=== PATIENT | female | born 1985 | race Caucasian/White ===

== ENCOUNTER 2017-08-05 08:53 | Day surgery (SDC) | payer OTHER ==
[2017-08-05 09:30] VITALS: BMI 31.1
--- NOTE | 2017-08-05 10:09 | PDOC.EVN ---
Event Note - Event Note Event Note: TRIAGE NOTE: Please see handwritten progress note In brief: Patient is a 31yo at 32 weeks and 2 days with urinary frequency and urgency, possible contractions. No fever. No recent trauma or sex. No Hx PIH. On low dose ASA for PIH Hx. I have ordered: Monitors Urine cath for UA FFN Observe for now FULL H&P in chart
--- NOTE | 2017-08-05 10:23 | PDOC.EVN ---
Event Note - Event Note Event Note: cervix exam by me FT/lg/-3/I
[2017-08-05 10:55] LABS: Bilirubin Negative (Negative); Blood, Urine Negative (Negative); Clarity CLEAR (Clear); Glucose, Urine (Dipstick) Negative (Negative); Leukocyte Negative (Negative); Nitrite Negative (Negative); Protein, Urine (Dipstick) Negative (Neg-Trace); Specific Gravity, Urine 1.008 (1.002-1.036); Urobilinogen 0.2 mg/dL (0.2-1.0); pH, Urine 6.5 (5.0-9.0)
[2017-08-05 10:57] LABS: FFN Internal QC Analyzer PASS (PASS); FFN Internal QC Cassette PASS (PASS); Fetal Fibronectin Negative (Negative)
--- NOTE | 2017-08-05 11:19 | PDOC.EVN ---
Event Note - Event Note Event Note: Lab check: FFN Neg UA negative I discussed with her negative UA. SXS are pretty compatible with UTI, despite UA. Therefore, I will RX emperically with macrobid for 5 days. Info given to the patient.
== END 2017-08-05 11:36 | disposition home or self-care (01) ==
LOC: L&D/OP 08:53
PROVIDERS: ATTEND Obstetrics & Gynecology
DX: O23.43 Unspecified infection of urinary tract in pregnancy, third trimester (principal); Z3A.32 32 weeks gestation of pregnancy
CPT/HCPCS: 51701; 81003; 82731; 99284; A4353

== ENCOUNTER 2017-08-29 13:00 | Day surgery (SDC) | payer OTHER ==
[2017-08-29 13:24] VITALS: BMI 31.4
[2017-08-29 13:25] VITALS: BP 132/85; TEMP 97.7
[2017-08-29] MEDS ORDERED: Acetaminophen 500 MG TAB PO SCH (13:45)
--- NOTE | 2017-08-29 13:45 | PDOC.LDHP ---
Labor and Delivery H&P Chief complaint: other (Hradache and "blurry vision") HPI: Patient of Dr Adams here for HUOSER and concern for PIH. Patient is a 31 yo at 35 weeks 4 days, with PIH with prior pregnanies, concerned she might have PIH. States saw "blurry" this AM (no spots) and has a headache. Good FM, no contractions, no LOF, no trauma, no siezures. No RUQ pain. Review of systems: complete ROS performed and negative as per HPI Current gestational age (weeks): 35 (4 days) Grav: 4 Para: 2 Current complications: none Abnormal US findings: No Past Medical History: Hx Anxiety Current medications: pre-daniel vitamins, other (low dose ASA) Previous surgical history: none Allergies/Adverse Reactions: Allergies Allergy/AdvReac Type Severity Reaction Status Date / Time No Known Allergies Allergy Verified 08/05/17 09:17 Social history: none - Physical Exam Vital signs reviewed and normal: yes (BP 133/85) General: NAD Heart: RRR Lungs: CTAB Abdomen: gravid Extremeties: no edema FHT: category 1 - Assessment 35 weeks with headache. First BP on record was nonhypertensive. - Plan Plan: observation in L&D, other (serial BPs for now. No evidence gross neurological deficits. No clonus. Check CMP and CBC for now. Offer tyenol. No evidence hypertensio at this time. Follow for now.)
[2017-08-29 14:08] LABS: #Lymphocytes 1.2 thou/uL (1.20-3.40); #Monocytes 0.6 thou/uL (0.11-0.59); #Neutrophils 6.5 thou/uL (1.40-6.50); %Basophils 0.3 % (0.0-1.0); %Eosinophils 0.6 % (0.0-10.0); %Lymphocytes 13.9 % (21.0-51.0); %Monocytes 6.6 % (0.0-10.0); %Neutrophils 78.6 % (42.0-75.0); Hemoglobin 12.4 g/dL (12.0-16.0); Mean Corpuscular HGB CONC 35.5 g/dL (32.0-36.0); Mean Corpuscular Hemoglobin 30.1 pg (27.0-31.0); Mean Corpuscular Volume 84.7 fl (81.0-99.0); Mean Platelet Volume 8.6 fL (7.4-10.4); Platelet Count 138 thou/uL (130-400); RBC Distribution Width 11.8 % (11.5-14.5); Red Blood Cell (RBC) Count 4.14 mill/uL (4.20-5.40); White Blood Cell (WBC) Count 8.3 thou/uL (4.8-10.8)
[2017-08-29 14:38] LABS: ALT (SGPT) 107 U/L (8-55); AST (SGOT) 39 U/L (5-34); Albumin 3.6 g/dL (3.5-5.0); Alkaline Phosphatase 129 U/L (40-150); Anion Gap 11 mmol/L (10-20); BUN (Urea Nitrogen) 7 mg/dL (7.0-18.7); Bilirubin, Total 1.7 mg/dL (0.2-1.2); Calc. Creatinine Clearance 201 mL/min (70-130); Calcium 9.2 mg/dL (7.8-10.44); Carbon Dioxide 22 mmol/L (22-29); Chloride 108 mmol/L (98-107); Estimated GFR-MDRD Greater than 90; Globulin 2.6 g/dL (2.4-3.5); Glucose 69 mg/dL (70-105); Potassium 3.8 mmol/L (3.5-5.1); Protein, Total 6.2 g/dL (6.0-8.3); Sodium 137 mmol/L (136-145)
--- NOTE | 2017-08-29 15:25 | PDOC.EVN ---
Event Note - Event Note Event Note: All BPs are normal. Mo evidence hypertension by record. Only isolatred ALT of 107 om labs. AST and creatinine are normal. I have suggested repeat LFTs in 48-72 hours. I do not suspect PIH at this time.
== END 2017-08-29 15:48 | disposition home or self-care (01) ==
LOC: L&D/OP 13:00
PROVIDERS: ATTEND Obstetrics & Gynecology
DX: O99.89 Other specified diseases and conditions complicating pregnancy, childbirth and the puerperium (principal); R51 Headache; H53.8 Other visual disturbances; Z3A.35 35 weeks gestation of pregnancy
CPT/HCPCS: 36415; 59025; 80053; 85025; 99283

== ENCOUNTER 2017-08-31 11:55 | Inpatient (IN) | payer OTHER ==
[2017-08-31] MEDS ORDERED: Zolpidem Tartrate 5 MG TAB PO PRN (12:18)
[2017-08-31] MEDS ORDERED: Acetaminophen 500 MG TAB PO PRN (12:18)
[2017-08-31] MEDS ORDERED: Lidocaine 1% (PF) 30 ML VIAL SC PRN (12:18)
[2017-08-31] MEDS ORDERED: Ondansetron HCl/PF 4 MG/2 ML Vial IVP PRN (12:18)
[2017-08-31] MEDS ORDERED: HYDROcodone/Acetaminophen 5/325 mg Tablet PO PRN ×2 (12:18)
[2017-08-31] MEDS ORDERED: Butorphanol Tartrate 1 MG/ML VIAL SLOW IVP PRN (12:18)
[2017-08-31] MEDS ORDERED: NS / Oxytocin 40 units/1000ml 1,000 ML IV PRN (12:18)
[2017-08-31] MEDS ORDERED: Promethazine HCl 25 MG/ML VIAL IM PRN (12:18)
[2017-08-31] MEDS ORDERED: NS w/ Oxytocin 10 units 500 ML IV SCH (12:30)
[2017-08-31] MEDS ORDERED: Penicillin G Potassium 5 MILL.UNITS in Sodium Chloride 0.9% 100 ML IVPB SCH ×3 (12:30→22:00)
[2017-08-31] MEDS ORDERED: Lactated Ringer's 1,000 ML IV SCH (12:30)
--- NOTE | 2017-08-31 12:39 | PDOC.LDHP ---
Labor and Delivery H&P Chief complaint: other HPI: 31 yo WF here for induction from Dr. Del Valle with h/o elevated BPs and elevated LFTs c/w PIH. Current gestational age (weeks): 35 Due date: 09/29/17 Dating criteria: first trimester ultrasound Grav: 5 Para: 2 OB History Details: PNC with Dr. Adams. H/o PIH x2 Current complications: none Abnormal US findings: Yes Past Medical History: none Current medications: pre-daniel vitamins Previous surgical history: none Allergies/Adverse Reactions: Allergies Allergy/AdvReac Type Severity Reaction Status Date / Time No Known Allergies Allergy Verified 08/05/17 09:17 Social history: none - Physical Exam General: NAD Heart: RRR Lungs: nonlabored breathing Abdomen: gravid Extremeties: trace edema FHT: variability present - Vaginal Exam cm dilated: 1 Effacement: 25% Station: -1 - OB Labs Blood type: B RH: negative Antibody Screen: negative HIV: negative RPR: negative HEPSAg: negative 1 hour GCT: negative GBS: unknown - Assessment 35 week IUP w/ PIH dispo by Dr. Del Valle for delivery - Plan -: Admit. Steroids for LFM. Cytotec for unfavorable cervix then pitocin induction. ABX for unknown GBS.
[2017-08-31] MEDS: Lactated Ringer's 1,000 ML IV SCH ×2 (13:00→20:20)
[2017-08-31] MEDS ORDERED: Betamet Acet/Betamet Na Ph 30 MG/5 ML VIAL ONE (13:27)
[2017-08-31 13:33] LABS: Mean Corpuscular HGB CONC 34.6 g/dL (32.0-36.0); Mean Corpuscular Hemoglobin 29.5 pg (27.0-31.0); Mean Corpuscular Volume 85.4 fl (81.0-99.0); Mean Platelet Volume 9.8 fL (7.4-10.4); Platelet Count 142 thou/uL (130-400); Red Blood Cell (RBC) Count 4.05 mill/uL (4.20-5.40); White Blood Cell (WBC) Count 8.7 thou/uL (4.8-10.8)
--- NOTE | 2017-08-31 13:50 | PDOC.EVN ---
Event Note - Event Note Event Note: Eating lunch. BP now= 138/81. Labs this AM at [facility]: T. bili= 1.6, AST= 46, ALT= 129, Cr= .69. CBC now: h/H= 34, plts= 142K. Plan: Cytotec for cervical ripening then pitocin induction. Celestone now and repeat in 12 hrs. ABX in labor for unknown GBS status.
[2017-08-31 13:58] VITALS: BMI 32.2
[2017-08-31] MEDS: Betamet Acet/Betamet Na Ph 30 MG/5 ML VIAL IM SCH (14:00)
[2017-08-31 14:12] LABS: HBSAg Index 0.24 S/CO (0-0.99); Hep B Surf Ag Non-Reactive S/CO (NonReactive)
[2017-08-31 14:13] LABS: Syphilis Antibody Nonreactive (Nonreactive); Syphilis Antibody Index 0.05 S/CO (<1.00 Non-Reactive)
[2017-08-31 14:32] LABS: Bilirubin Negative (Negative); Blood, Urine Negative (Negative); Clarity CLEAR (Clear); Glucose, Urine (Dipstick) Negative (Negative); Leukocyte Trace (Negative); Nitrite Negative (Negative); Protein, Urine (Dipstick) Trace mg/dL (Neg-Trace); Specific Gravity, Urine 1.021 (1.002-1.036); pH, Urine 6.5 (5.0-9.0)
[2017-08-31 14:36] LABS: Bacteria/HPF None Seen HPF (None Seen); Hyaline Casts/LPF 0-3 HYALINE CAST LPF (0-3 Hyaline); Pathc Cast-AUWi Flag 0.58 (0-2.49); RBC/HPF 0-3 HPF (0-3); Squamous Epithelial 0-3 HPF (0-3); WBC/HPF 0-3 HPF (0-3)
[2017-08-31] MEDS: Misoprostol 100 MCG TAB VAG SCH ×3 (15:15→21:11)
[2017-08-31] MEDS: Penicillin G 2.5 MILL.units 2.5 MILL.UNITS in Premix Bag 1 BAG IVPB SCH ×3 (15:22→21:13)
--- NOTE | 2017-08-31 21:37 | PDOC.LDPN ---
Labor & Delivery Progress Note - Subjective Subjective: comfortable - Objective Vital signs reviewed and normal: yes General: resting Uterine fundus: non tender Dilation: 3 Effacement: 75% Station: -2 FHT: variability present [place] contractions every: q 3-4 mins -: 3rd dose of Cytotec deferred. Observe labor progress for now. Start ABX for GBS. Pitocin augmentation if needed.
[2017-09-01] MEDS: Misoprostol 100 MCG TAB VAG SCH ×2 (00:43→06:11)
[2017-09-01] MEDS ORDERED: Fentanyl 100 MCG/2 ML VIAL ONE (01:10)
[2017-09-01] MEDS ORDERED: Bupivacaine 0.5% 20 ML, fentaNYL Citrate/PF 400 MCG in Sodium Chloride 0.9% 72 ML EPIDURAL SCH (01:15)
[2017-09-01] MEDS ORDERED: DISCONTINUE ALL PREVIOUS NARCOTICS FS SCH (01:15)
[2017-09-01] MEDS ORDERED: Hydrocerin (Eucerin) Cream 120 gm Jar TOP PRN (01:35)
[2017-09-01] MEDS ORDERED: Ondansetron HCl/PF 4 MG/2 ML Vial IVP PRN (01:35)
[2017-09-01] MEDS ORDERED: ePHEDrine/0.9% NaCl/PF SYRINGE 50 mg/10 ml SLOW IVP PRN (01:35)
[2017-09-01] MEDS ORDERED: Lactated Ringer's 500 ML IV PRN (01:35)
[2017-09-01] MEDS ORDERED: diphenhydrAMINE 50 MG/ML VIAL IVP PRN (01:35)
[2017-09-01] MEDS ORDERED: Acetaminophen 325 MG TAB PO PRN (01:35)
[2017-09-01] MEDS ORDERED: Promethazine HCl 25 MG/ML VIAL IM PRN (01:35)
[2017-09-01] MEDS ORDERED: Naloxone HCl 0.4 mg/ml Vial IVP PRN ×2 (01:35)
[2017-09-01] MEDS ORDERED: Communication Order-Pharmacy FS SCH (01:45)
[2017-09-01] MEDS ORDERED: Fentanyl 4mcg/Marcaine 0.1% Cassette 100 ML EPIDURAL SCH (01:45)
[2017-09-01] MEDS: Betamet Acet/Betamet Na Ph 30 MG/5 ML VIAL IM SCH (02:02)
[2017-09-01] MEDS: Penicillin G 2.5 MILL.units 2.5 MILL.UNITS in Premix Bag 1 BAG IVPB SCH ×2 (02:18→06:11)
[2017-09-01] MEDS: Lactated Ringer's 1,000 ML IV SCH ×3 (02:20→21:50)
--- NOTE | 2017-09-01 02:47 | PDOC.EVN ---
Event Note - Event Note Event Note: Comfortable with epidural. BPs reassuring. SVE remains 4-5/70/0 vtx. AROM- clear fluid. Pen G given. 2nd dose of steroids given. Watch progress. Augment if needed.
[2017-09-01] MEDS ORDERED: Ondansetron ODT 4 MG TAB PO PRN (05:42)
--- NOTE | 2017-09-01 05:56 | PDOC.OPDEL ---
OB Operative/Delivery Note Delivery Dr/Surgeon: Roderick Pre-Delivery Diagnosis: medically indicated induction Procedure/Post Delivery Dx: spontaneous vaginal delivery Weeks gestation: 36 Anesthesia: epidural - Additional Findings/Plan Placenta delivered: spontaneous Repaired Obstetrical Laceration: none Estimated blood loss: 250 cc Compilations/Other Findings: Viable male OA over intact perineum Apgars 9/9. BPs were normal in labor. 2 doses steroids and ABX for unknown GBS status given. To recover in L&D.
[2017-09-01] MEDS ORDERED: Bisacodyl 10 MG SUPP PR PRN (07:26)
[2017-09-01] MEDS ORDERED: traMADol HCl 50 MG TAB PO PRN (07:26)
[2017-09-01] MEDS ORDERED: HYDROcodone/Acetaminophen 5/325 mg Tablet PO PRN ×2 (07:26)
[2017-09-01] MEDS ORDERED: diphenhydrAMINE 25 MG CAP PO PRN (07:26)
[2017-09-01] MEDS ORDERED: Preparation H Ointment 28 GM TUBE PR PRN (07:26)
[2017-09-01] MEDS ORDERED: Zolpidem Tartrate 5 MG TAB PO PRN (07:26)
[2017-09-01] MEDS ORDERED: NS / Oxytocin 40 units/1000ml 1,000 ML IV SCH (07:26)
[2017-09-01] MEDS ORDERED: Lanolin Ointment 7 GM TUBE TOP PRN (07:26)
[2017-09-01] MEDS ORDERED: Milk Of Magnesia 30 ML UDCUP PO PRN (07:26)
[2017-09-01] MEDS ORDERED: Adacel (T-DAP) 0.5 ML VIAL IM ONE (07:26)
[2017-09-01] MEDS: Ferrous Sulfate 325 MG TAB PO SCH ×2 (08:36→21:51)
[2017-09-01] MEDS: Prenatal Vitamin 1 TAB PO SCH (09:03)
[2017-09-01] MEDS: Docusate Calcium (SURFAK) 240 MG CAP PO SCH ×2 (09:03→21:40)
[2017-09-01] MEDS: Ibuprofen 800 MG TAB PO PRN (21:41)
[2017-09-02 05:11] LABS: Hemoglobin 11.3 g/dL (12.0-16.0); Mean Corpuscular HGB CONC 34.5 g/dL (32.0-36.0); Mean Corpuscular Hemoglobin 29.9 pg (27.0-31.0); Mean Corpuscular Volume 86.7 fl (81.0-99.0); Mean Platelet Volume 9.3 fL (7.4-10.4); Platelet Count 155 thou/uL (130-400); RBC Distribution Width 12.3 % (11.5-14.5); Red Blood Cell (RBC) Count 3.77 mill/uL (4.20-5.40)
[2017-09-02] MEDS: Ibuprofen 800 MG TAB PO PRN (06:46)
[2017-09-02 07:10] LABS: ALT (SGPT) 200 U/L (8-55); AST (SGOT) 66 U/L (5-34); Albumin 3.3 g/dL (3.5-5.0); Alkaline Phosphatase 118 U/L (40-150); Anion Gap 14 mmol/L (10-20); BUN (Urea Nitrogen) 6 mg/dL (7.0-18.7); Bilirubin, Total 1.1 mg/dL (0.2-1.2); Calc. Creatinine Clearance 188 mL/min (70-130); Calcium 8.7 mg/dL (7.8-10.44); Carbon Dioxide 21 mmol/L (22-29); Chloride 107 mmol/L (98-107); Estimated GFR-MDRD Greater than 90; Globulin 2.5 g/dL (2.4-3.5); Glucose 75 mg/dL (70-105); Potassium 3.9 mmol/L (3.5-5.1); Protein, Total 5.8 g/dL (6.0-8.3); Sodium 138 mmol/L (136-145)
[2017-09-02] MEDS: Lactated Ringer's 1,000 ML IV SCH ×2 (07:59→11:56)
[2017-09-02] MEDS: Ferrous Sulfate 325 MG TAB PO SCH ×2 (07:59→15:35)
[2017-09-02] MEDS: Misoprostol 100 MCG TAB VAG SCH (08:00)
--- NOTE | 2017-09-02 08:17 | DIS ---
DATE OF ADMISSION: 08/31/2017 DATE OF DISCHARGE: 09/02/2017 ADMITTING DIAGNOSIS: -induced hypertension at 35 weeks' gestation. DISCHARGE DIAGNOSIS: -induced hypertension, at 35 weeks' gestation. PROCEDURE: spontaneous vaginal delivery. HOSPITAL COURSE: The patient is a 31-year-old female with an intrauterine at 35 weeks, who was sent from the office by Dr. Del Valle for concerns of PIH with elevated LFTs, requesting induction of labor. The patient was evaluated and a Cytotec induction was started. Her induction ultimately ended in an uncomplicated spontaneous vaginal delivery, and after recovery, the patient was s ent to for continued care. Her vital signs remained stable and normal since delivery with her most recent vital signs with a blood pressure of 129/79, temperature 98.2, pulse of 75, respirat ory rate of 18. In general, she appears to be in no acute distress. She is alert and oriented, coop erative and pleasant to interact with. Head is normocephalic, atraumatic. Fundus is firm. Extremit ies are nontender, nonedematous. The patient has no complaints this morning. The patient is being d ischarged to home with ibuprofen p.r.n. as needed for the pain control. She has instructions to foll ow up with Dr. Adams in 6 weeks and to follow up sooner if she experiences increasing pain, fever, or bleeding. Patient will need a 1 week followup for blood pressure check. Otherwise, will follow up in 6 weeks.
[2017-09-02] MEDS: Docusate Calcium (SURFAK) 240 MG CAP PO SCH ×2 (09:03→21:25)
[2017-09-02] MEDS: Prenatal Vitamin 1 TAB PO SCH (09:03)
[2017-09-03] MEDS: Lactated Ringer's 1,000 ML IV SCH ×2 (03:07→08:48)
--- NOTE | 2017-09-03 07:35 | PDOC.PP ---
Post Progress Note Post Day #: 3 Subjective: Patient decided to stay one more night after d/c order yesterday. Doing well without complaints. PO intake tolerated: yes Ambulation: yes Vital Signs (12 hours) Temp Pulse Resp BP 09/02/17 20:50 98.2 F 70 16 122/63 Weight Weight 212 lb - Physical Examination General: NAD Respiratory: non-labored breathing Abdominal: lochia (normal) Neurological: no gross focal deficits Psychiatric: A&Ox3, normal affect Result Diagrams: 09/02/17 04:43 09/02/17 04:42 Additional Labs: Post Labs Blood Type B NEGATIVE 08/31/17 13:00 Hep Bs Antigen Non-Reactive S/CO (NonReactive) 08/31/17 13:00 (1) Normal delivery at term Code(s): O80 - ENCOUNTER FOR FULL-TERM UNCOMPLICATED DELIVERY Status: Acute - Assessment/Plan D/c home today. All questions answered.
[2017-09-03 08:20] VITALS: BP 123/90; TEMP 98.7
[2017-09-03] MEDS: Prenatal Vitamin 1 TAB PO SCH (08:47)
[2017-09-03] MEDS: Docusate Calcium (SURFAK) 240 MG CAP PO SCH (08:47)
[2017-09-03] MEDS: Ferrous Sulfate 325 MG TAB PO SCH (08:48)
== END 2017-09-03 13:00 | disposition home or self-care (01) | DRG 775 ==
LOC: L&D 11:55 → 3SW 09-01 20:50
PROVIDERS: ADMIT Obstetrics & Gynecology; ATTEND Obstetrics & Gynecology
PROC: 3E0P7VZ Introduction of Hormone into Female Reproductive, Via Natural or Artificial Opening (ICD-10-PCS; 2017-08-31)
PROC: 3E033VJ Introduction of Other Hormone into Peripheral Vein, Percutaneous Approach (ICD-10-PCS; 2017-08-31)
PROC: 10E0XZZ Delivery of Products of Conception, External Approach (ICD-10-PCS; principal; 2017-09-01)
PROC: 3E0334Z Introduction of Serum, Toxoid and Vaccine into Peripheral Vein, Percutaneous Approach (ICD-10-PCS; 2017-09-02)
DX: O13.4 Gestational [pregnancy-induced] hypertension without significant proteinuria, complicating childbirth (principal); O60.14X0 Preterm labor third trimester with preterm delivery third trimester, not applicable or unspecified; O26.893 Other specified pregnancy related conditions, third trimester; Z67.21 Type B blood, Rh negative; Z3A.35 35 weeks gestation of pregnancy; Z37.0 Single live birth
CPT/HCPCS: 36415; 51702; 59025; 80053; 81001; 85025; 85027; 85461; 86780; 86850; 86870; 86900; 86901; 87340; 90384; 96372; 99283; J0702; J1200; J2001; J2540; J3010; J3490; J7050; Q0162

== ENCOUNTER 2017-12-26 16:01 | Outpatient (CLI) | payer OTHER ==
--- NOTE | 2017-12-26 17:24 | RAD ---
LEFT KNEE 4 VIEWS: Date: 12/26/17 HISTORY: Left knee injury. FINDINGS: Joint spaces are preserved. No acute fracture, dislocation, or fluid distention of the suprapatellar bursa. IMPRESSION: No acute osseous abnormalities are demonstrated. POS: [facility]
== END 2017-12-26 16:02 | disposition home or self-care (01) ==
LOC: SCSRAD 16:01
PROVIDERS: ATTEND Family Medicine
DX: S83.8X2A Sprain of other specified parts of left knee, initial encounter (principal)

== ENCOUNTER 2018-01-06 15:45 | Outpatient (CLI) | payer OTHER ==
--- NOTE | 2018-01-06 21:20 | MRI ---
MRI OF LEFT KNEE PERFORMED WITHOUT CONTRAST ENHANCEMENT: 01/06/18 HISTORY: Knee pain. Patient originally injured doing squats. The anterior and posterior cruciate ligaments are intact. The medial as well as lateral menisci have a fairly normal shape and appearance. The medial and lateral collateral ligaments and iliotibial band regions appear unremarkable. There is some increased signal change associated with articular cartilage on one of the axial images. As single slice finding, there is suggestion of some fissuring, although this may be related to some type of motion as the images directly above and below this level are unremarkable. There is a small joint effusion seen. There is suggestion of some minimal edema change associated with the patella. IMPRESSION: 1. No evidence of cruciate ligament or meniscal injury. 2. 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 The patella cartilag e appears slightly edematous. On one slide only, there is suggestion of some fissuring of the articul ar cartilage but appears completely normal. this is just directly above and below this level and I be lieve this is probably related to some type of motion artifactual appearance. POS: [facility]
== END 2018-01-06 15:46 | disposition home or self-care (01) ==
LOC: SCSMRI 15:45
PROVIDERS: ATTEND Family Medicine
DX: S83.8X2A Sprain of other specified parts of left knee, initial encounter (principal); M25.462 Effusion, left knee

== ENCOUNTER 2018-03-02 21:16 | Emergency (ER) | payer OTHER | END 2018-03-02 21:54 | disposition home or self-care (01) | LOC: SCSER 21:16 | DX: J02.9 Acute pharyngitis, unspecified (principal); I10 Essential (primary) hypertension; Z79.899 Other long term (current) drug therapy | CPT/HCPCS: 99282 ==

== ENCOUNTER 2018-05-04 16:52 | Emergency (ER) | payer OTHER ==
[2018-05-04 17:47] LABS: #Basophils 0.1 thou/uL (0.0-0.2); #Lymphocytes 2.3 thou/uL (1.20-3.40); #Monocytes 0.5 thou/uL (0.11-0.59); #Neutrophils 5.3 thou/uL (1.40-6.50); %Basophils 0.6 % (0.0-1.0); %Eosinophils 0.6 % (0.0-10.0); %Lymphocytes 28.4 % (21.0-51.0); %Monocytes 6.5 % (0.0-10.0); %Neutrophils 63.9 % (42.0-75.0); Hemoglobin 14.4 g/dL (12.0-16.0); Mean Corpuscular HGB CONC 33.9 g/dL (32.0-36.0); Mean Corpuscular Hemoglobin 28.4 pg (27.0-31.0); Mean Corpuscular Volume 83.5 fL (78.0-98.0); Mean Platelet Volume 9.3 fL (7.4-10.4); Platelet Count 245 thou/uL (130-400); RBC Distribution Width 11.5 % (11.5-14.5); Red Blood Cell (RBC) Count 5.07 mill/uL (4.20-5.40); White Blood Cell (WBC) Count 8.2 thou/uL (4.8-10.8)
[2018-05-04 17:52] LABS: BHCG - Serum Negative (NEGATIVE); Pregs Control Background? CLEAR/WHITE (CLR/WHITE); Pregs Control Bar Appear? YES (CONTROL BAR)
[2018-05-04 18:01] LABS: ALT (SGPT) 32 U/L (8-55); AST (SGOT) 17 U/L (5-34); Albumin 4.8 g/dL (3.5-5.0); Alkaline Phosphatase 66 U/L (40-150); Anion Gap 13 mmol/L (10-20); BUN (Urea Nitrogen) 16 mg/dL (7.0-18.7); Bilirubin, Total 0.9 mg/dL (0.2-1.2); Calc. Creatinine Clearance 0 mL/min (70-130); Calcium 9.9 mg/dL (7.8-10.44); Carbon Dioxide 25 mmol/L (22-29); Chloride 105 mmol/L (98-107); Estimated GFR-MDRD 77; Globulin 2.6 g/dL (2.4-3.5); Glucose 85 mg/dL (70-105); Lipase 27 U/L (8-78); Potassium 3.7 mmol/L (3.5-5.1); Protein, Total 7.4 g/dL (6.0-8.3); Sodium 139 mmol/L (136-145)
[2018-05-04 18:08] LABS: Bilirubin Negative (Negative); Blood, Urine Negative (Negative); Clarity Hazy (Clear); Glucose, Urine (Dipstick) Negative (Negative); Leukocyte Small (Negative); Nitrite Negative (Negative); Protein, Urine (Dipstick) Negative (Neg-Trace); Urobilinogen 0.2 mg/dL (0.2-1.0)
[2018-05-04 18:09] LABS: Bacteria/HPF 1+ HPF (None Seen); RBC/HPF None Seen HPF (0-3)
--- NOTE | 2018-05-04 19:39 | CT ---
CONTRAST ENHANCED CT IMAGES ABDOMEN AND PELVIS: 05/04/18 HISTORY: Right lower quadrant pain. Contrast enhanced CT images of the abdomen and pelvis is obtained after administration of IV contrast . The lung bases are unremarkable. No evidence of free intraperitoneal air seen. The liver and spleen are unremarkable. The gallbladder contains numerous areas of hyperdensity compat ible with numerous gallstones. No evidence of gallbladder wall thickening seen. The pancreas is unrem arkable. Adrenal glands unremarkable. The kidneys are within normal limits. No evidence of periaortic lymphadenopathy seen. No dilated loops of small bowel seen. A normal appendix is visualized. The colon is unremarkable. IMPRESSION: Cholelithiasis. POS: [facility]
== END 2018-05-04 20:16 | disposition home or self-care (01) ==
LOC: SCSER 16:52
DX: R10.31 Right lower quadrant pain (principal); R11.0 Nausea
CPT/HCPCS: 36415; 74177; 80053; 81003; 81015; 83690; 84703; 85025; 87086; 87480; 87491; 87510; 87591; 87660; 96360; 96361

== ENCOUNTER 2019-02-01 18:00 | Emergency (ER) | payer OTHER ==
[2019-02-01] MEDS ORDERED: Lorazepam 2 MG/ML VIAL ONE (18:25)
--- NOTE | 2019-02-01 18:30 | RAD ---
EXAM: Single view of the chest HISTORY: Chest pain COMPARISON: None FINDINGS: Single view of the chest shows a normal sized cardiomediastinal silhouette. There is no joaquín dence of consolidation, mass, or pleural effusion. The bones are unremarkable. IMPRESSION: No evidence of acute cardiopulmonary disease
[2019-02-01 18:52] LABS: #Basophils 0.1 thou/uL (0.0-0.2); #Lymphocytes 2.9 thou/uL (1.20-3.40); #Monocytes 0.6 thou/uL (0.11-0.59); %Eosinophils 0.5 % (0.0-10.0); %Monocytes 6.6 % (0.0-10.0); %Neutrophils 61.9 % (42.0-75.0); Hemoglobin 14.3 g/dL (12.0-16.0); Mean Corpuscular HGB CONC 32.8 g/dL (32.0-36.0); Mean Corpuscular Hemoglobin 27.9 pg (27.0-31.0); Mean Corpuscular Volume 85.2 fL (78.0-98.0); Mean Platelet Volume 9.5 fL (7.4-10.4); Platelet Count 241 thou/uL (130-400); RBC Distribution Width 12.2 % (11.5-14.5); White Blood Cell (WBC) Count 9.7 thou/uL (4.8-10.8)
[2019-02-01 19:10] LABS: ALT (SGPT) 41 U/L (8-55); AST (SGOT) 23 U/L (5-34); Albumin 4.9 g/dL (3.5-5.0); Alkaline Phosphatase 56 U/L (40-110); Anion Gap 15 mmol/L (10-20); BUN (Urea Nitrogen) 20 mg/dL (7.0-18.7); Bilirubin, Total 0.7 mg/dL (0.2-1.2); Calc. Creatinine Clearance 0 mL/min (70-130); Calcium 9.5 mg/dL (7.8-10.44); Carbon Dioxide 21 mmol/L (22-29); Chloride 107 mmol/L (98-107); Estimated GFR-MDRD 76; Globulin 2.6 g/dL (2.4-3.5); Glucose 84 mg/dL (70-105); Potassium 3.7 mmol/L (3.5-5.1); Protein, Total 7.5 g/dL (6.0-8.3); Sodium 139 mmol/L (136-145)
== END 2019-02-01 19:37 | disposition home or self-care (01) ==
LOC: SCSER 18:00
DX: R07.89 Other chest pain (principal); F43.0 Acute stress reaction; F41.9 Anxiety disorder, unspecified
CPT/HCPCS: 36415; 71045; 80053; 84484; 85025; 93005; 96372; J2060